=== PATIENT | male | born 1955 | race Caucasian/White ===

== ENCOUNTER 2018-08-29 04:38 | Observation (INO) ==
[2018-08-29] MEDS ORDERED: ONDANSETRON 4 MG/2 ML VIAL IVP ONE ×2 (04:46→05:24)
[2018-08-29] MEDS ORDERED: Sodium Chloride 0.9% 1,000 ML PRIMARY IV ONE ×3 (04:46→05:37)
[2018-08-29] MEDS ORDERED: MORPHINE SULFATE 4 MG/1 ML IVP ONE ×2 (04:46→05:24)
[2018-08-29] MEDS ORDERED: FAMOTIDINE 20 MG/2 ML VIAL IVP ONE ×4 (04:46→09:58)
[2018-08-29] MEDS ORDERED: Belladon/PHENobarbital Elixir 10 ML, Lidocaine Viscous Liquid 2% 15 ML, Mag Hyd/Al Hyd/... PO ONE ×6 (04:52→05:24)
[2018-08-29] MEDS ORDERED: MORPHINE SULFATE 4 MG/1 ML ONE (05:37)
[2018-08-29] MEDS ORDERED: ONDANSETRON 4 MG/2 ML VIAL ONE (05:37)
[2018-08-29 05:42] LABS: BASOPHILS # (AUTO) 0.03 10*3/UL; BASOPHILS % (AUTO) 0.3 % (0-1); EOSINOPHILS # (AUTO) 0.01 10*3/UL; EOSINOPHILS % (AUTO) 0.1 % (0-8); Hematocrit [HCT] 45.7 % (42.0-52.0); Hemoglobin [HGB] 15.2 g/dL (14.0-18.0); LYMPHOCYTES # (AUTO) 1.48 10*3/uL; MEAN CORPUSCULAR HGB CONC 33.3 g/dL (33-37); MEAN PLATELET VOLUME 9.4 FL (7.4-12.2); MONOCYTES # (AUTO) 0.59 10*3/UL (0.3-0.8); NEUTROPHILS # (AUTO) 9.76 10*3/UL; PLATELET MORPHOLOGY COMMENT NORMAL MORPHOLOGY (NORM); RBC MORPHOLOGY COMMENT NORMAL MORPHOLOGY (NORM); RED BLOOD COUNT 5.64 10^6/uL (4.70-6.10); WBC MORPHOLOGY COMMENT NORMAL MORPHOLOGY (NORM)
--- NOTE | 2018-08-29 05:46 | PDOC ---
Abdomen/Flank HPI - General Chief Complaint: Abdomen Pain Stated Complaint: Stomach on fire Date Seen by Provider: 08/29/18 Time Seen by Provider: 04:45 Source: POSITIVE: Patient Exam Limitations: POSITIVE: No limitations Nurse's Notes Reviewed & Considered: Yes - History of Present Illness Initial Comments: The patient is a 63-year-old male who presents to the emergency department with epigastric abdominal pain. He states that approximately a week ago he had onset of some epigastric pain associated with itching. He had taken some antiacid medication and milk and the symptoms seem to resolve. This evening after eating some chili he had onset of recurrent pain which he describes as a burning pain in the epigastric region. He states that he made himself vomit several times without any relief. He tried taking antiacid medications without any relief. The pain is centered primarily in the epigastric region. He states he does have some shortness of breath. He denies lightheadedness or fever. He has not had any hematemesis or blood in his stool. He has not had any prior abdominal surgeries. He denies any known history of stomach ulcers or acid reflux. He currently rates his pain a 10 out of 10. He states that he has not slept all night secondary to the pain. His only past medical history is hypertension. He denies cardiac history. - Patient Home Medications Home Medications: Home Medications Atenolol 25 mg PO DAILY 08/29/18 - Patient Allergies Allergies/Adverse Reactions: Allergies Allergy/AdvReac Type Severity Reaction Status Date / Time No Known Allergies Allergy Verified 08/29/18 04:41 Past Medical History - heen HEENT History: Denies History Cardiovascular History: Hypertension Respiratory History: Denies History Gastrointestinal History: Denies History Genitourinary History: Denies History Endocrine History: Denies History Musculoskeletal History: Denies History Neurological History: Denies History Blood Disorders: Denies History Psychiatric History: Denies History History of Sexually Transmitted Diseases: No Male Reproductive History: Denies History Cancer History: Denies History In Past Year Been Physically Harmed or Verbally Threatened: No History of MDRO: No History of Other Communicable Diseases: No Tobacco Use: Never Smoker In the Past 12 Months, Have Used or Abuse Any Substance: None Previous Surgical History: No Significant Family History: No pertinent family hx Past Medical History Reviewed: Reviewed - No Changes ROS - Limitations ROS Limitations: No Limitations Constitution: DENIES: Chills, Fever Cardiovascular: DENIES: Chest Pain, Heart Palpitations, Edema Respiratory: REPORTS: Shortness Of Breath. DENIES: Cough Non Productive, Cough Productive Neurological: REPORTS: Denies Neuro Symptoms Gastrointestinal: REPORTS: Abdominal Pain, Nausea, Vomitting Endocrine: REPORTS: Denies Symptoms Musculoskeletal: REPORTS: Denies MS Symptoms Genitourinary: REPORTS: Denies Symptoms Eyes: REPORTS: Denies Symptoms ENT: REPORTS: Denies Symptoms Abdominal/Flank Pain PE - General Appearance General Appearance: POSITIVE: Alert, Cooperative, No Acute Distress - HEENT HEENT: POSITIVE: Head Inspection Nml, Eyes Inspection Nml, Ears Inspection Nml, Nose Inspection Nml, Pharynx Inspect. Nml - Neck Neck: POSITIVE: Normal Inspection. NEGATIVE: Lymphadenopathy - Respiratory Respiratory: POSITIVE: No Respiratory Distress, Breath Sounds Normal - Cardiovascular Cardiovascular: POSITIVE: Regular Rate and Rhythm, Heart Sounds Normal Peripheral Pulses: Dorsalis-pedis (R): 2+, Dorsalis-pedis (L): 2+ - Abdomen Abdomen: Soft: (All Quadrants), Normal Bowel Sounds: (All Quadrants), Denies Tenderness: (All Quadrants), No Guarding: (All Quadrants), No Rebound: (All Quadrants) - Back Back: NEGATIVE: CVA Tenderness (R), CVA Tenderness (L) - Skin Skin: POSITIVE: Intact, No Rash - Extremities Extremity: Normal ROM: (All Extremities), Normal Inspection: (All Extremities) - Neurological Neurological: POSITIVE: Oriented X3, iron pourer Normal As Tested, Motor Normal, Sensation Normal Abdomen Progress - Results Reviewed by me Xrays/CTs/US Reviewed by me: Yes Discussed with Radiologist: Yes Radiology Findings: CT scan of the abdomen and pelvis with IV contrast shows no acute intra-abdominal findings per radiologist. Lab Results Reviewed by Me: Yes CBC and BMP: 08/29/18 05:18 08/29/18 05:18 EKG Interpreted/Reviewed By Me:: Yes EKG Interpretation:: POSITIVE: Normal Sinus Rhythm, Normal Rate, Normal QRS, Normal ST/T - Patient's Progress MDM / ED Course: On arrival the patient is complaining of 10 out of 10 epigastric abdominal pain. His initial EKG shows normal sinus rhythm with no acute ST segment or T-wave changes. An IV was established and the patient received 4 mg of morphine, 4 mg of Zofran and 20 mg of Pepcid IV. He also received a GI cocktail. Labs and CT of the abdomen and pelvis were ordered. The patient stated initially that he did not think he needed a CT scan because it was "just heartburn". After administration of initial medications the patient stated that the pain was still there however he "just doesn't care". His initial blood work revealed a mildly elevated white blood cell count and one elevated transaminase, the remainder of his blood work was unremarkable. These findings were discussed with the patient. He was still having significant pain and decision was made to obtain the CAT scan of the abdomen and pelvis with IV contrast. This did not show any acute intra-abdominal findings per radiologist. The patient was still having considerable pain and received fentanyl 50 g IV which she states did not help at all. He reported that his pain was still a 10 out of 10. I subsequent really discussed the patient with Dr. Chow. The patient will be admitted for further treatment and evaluation. A gallbladder ultrasound was ordered and the patient received Dilaudid 1 mg IV and Protonix 40 mg IV. I also discussed the patient with Dr. Leonard and he has agreed to admit the patient for further treatment. These findings recommendations were discussed with the patient and his and he is in agreement with current plan. - Consult Counseled: POSITIVE: Patient, Family, RE: Lab Results, RE: Radiology Results, RE: DX Patient Care Time - Estimated PCT Patient Care Time (In Minutes): 45 Vital Signs - Recent Vital Signs Vital Signs: Vital Signs (Last 8 hours) Temp Pulse Resp BP Pulse Ox 08/29/18 04:41 97.4 F 82 18 191/107 95 - VS Reviewed Vital Signs Reviewed: Yes Discharge Clinical Impression: Abdominal pain, Gastritis Discharge Disposition: Admit to Observation Condition: Stable Follow Up With: NONE,NONE [Primary Care Provider] -
[2018-08-29 05:48] LABS: BLOOD UREA NITROGEN 15 mg/dL (7-22); BUN/CREATININE RATIO 13.63 (6-20); LIPASE 83 IU/L (23-300); SERUM ALBUMIN 4.5 g/dL (3.5-4.8)
[2018-08-29] MEDS ORDERED: LIDOCAINE 2% VISCOUS(20 MG/1 ML) - 15 ML UD CUP PO ONE (05:48)
[2018-08-29] MEDS ORDERED: MAG HYDROX/AL HYDROX/SIMETH 30 ML SUSP PO ONE (05:48)
[2018-08-29] MEDS ORDERED: BELLADONNA ALKALOIDS/PHENOBARB 32.4 MG/10 ML PO ONE (05:48)
[2018-08-29] MEDS ORDERED: fentaNYL Inj 100 MCG/2 ML VIAL IVP ONE (06:53)
[2018-08-29] MEDS ORDERED: fentaNYL Inj 100 MCG/2 ML VIAL ONE (07:04)
--- NOTE | 2018-08-29 07:25 | DI ---
EXAM: CT Abdomen and Pelvis With Intravenous Contrast CLINICAL HISTORY: ITS.REASON Abdominal Pain Physician Notes: Tech Comments: TECHNIQUE: Axial computed tomography images of the abdomen and pelvis with intravenous contrast. COMPARISON: No relevant prior studies available. FINDINGS: Lung bases: There is bibasilar linear atelectasis versus fibrosis. ABDOMEN: Liver: Unremarkable. No mass. Gallbladder and bile ducts: Unremarkable. No calcified stones. No ductal dilation. Pancreas: Unremarkable. No mass. No ductal dilation. Spleen: Unremarkable. No splenomegaly. Adrenals: Unremarkable. No mass. Kidneys and ureters: Unremarkable. No solid mass. No hydronephrosis. Stomach and bowel: Unremarkable. No obstruction. No mucosal thickening. PELVIS: Appendix: Normal appendix. Bladder: Unremarkable. No mass. Reproductive: Unremarkable as visualized. ABDOMEN and PELVIS: Intraperitoneal space: Unremarkable. No free air. No significant fluid collection. Bones/joints: No acute fracture. No dislocation. Soft tissues: Small fat-containing left inguinal hernia. Vasculature: Unremarkable. No abdominal aortic aneurysm. Lymph nodes: Unremarkable. No enlarged lymph nodes. IMPRESSION: No acute findings.
[2018-08-29] MEDS ORDERED: HYDROmorphone 2 MG/1 ML IVP ONE (07:54)
[2018-08-29] MEDS ORDERED: PANTOPRAZOLE IV 40 MG VIAL IVP ONE (07:54)
--- NOTE | 2018-08-29 08:25 | DI ---
GALLBLADDER AND LIVER ULTRASOUND, 08/29/2018 7:56 AM: Clinical History: Epigastric pain Previous Exam: None at this facility. Comparison is made with the CT scan of the abdomen and pelvis p erformed earlier this morning. Technique: Right upper quadrant scanned in multiple projections with Color Doppler ultrasound. Liver Texture: Diffuse fatty infiltration. No liver mass. Liver Size: Hepatomegaly. 199 mm. Gallbladder: Well distended. Multiple gallstones are present and these are associated with acoustical shadowing. They measure approximately 5 mm in diameter. Normal gallbladder wall thickness. Negative Oseguera's sign. Common Bile Duct: 5 mm. Pancreas: Completely obscured by gas. Right Kidney: Normal right kidney. IVC and Aorta: Normal IVC and aorta. READIN. Cholelithiasis without evidence of cholecystitis. Common duct measures 5 mm. No definite Oseguera's sign noted. 2. Hepatomegaly with diffuse fatty infiltration.
[2018-08-29] MEDS ORDERED: ACETAMINOPHEN 325 MG TABLET PO PRN (09:21)
[2018-08-29] MEDS ORDERED: ONDANSETRON 4 MG/2 ML VIAL IVP PRN (09:21)
[2018-08-29] MEDS ORDERED: LIDOCAINE W/ SODIUM BICARB 0.5 ML SYR SUBD PRN ×2 (09:21→12:05)
[2018-08-29] MEDS ORDERED: CALCIUM CARBONATE 500 MG (TUMS) CHEWABLE TABLET PO PRN (09:21)
[2018-08-29] MEDS ORDERED: Levofloxacin (Premix) 750 MG/150 ML PIGGYBACK IV SCH (09:30)
[2018-08-29] MEDS ORDERED: Lactated Ringers 1,000 ML PRIMARY IV SCH (09:30)
[2018-08-29] MEDS ORDERED: metroNIDAZOLE 500mg (Premix) 500 MG/100 ML BAG IV SCH (09:30)
--- NOTE | 2018-08-29 09:31 | EKG ---
[address] [address] Measurements Intervals [place] Rate: 70 P: 33 OK: 172 QRS: -1 QRSD: 86 T: 11 QT: 375 QTc: 396 Interpretive Statements SINUS RHYTHM No previous ECG available for comparison Electronically Signed On 08-29-18 15:18:58 MST by Gopi Melendez [email or web address]
--- NOTE | 2018-08-29 09:32 | PDOC ---
HPI - History of Present Illness Date of Service: 08/29/18 Time of Service: 09:45 Chief Complaint: Abdominal pain that started last night History of Present Illness: This is a 63 years old male with medical history significant for history of hy pertension who presented to the hospital with history of epigastric pain he said this is his third attack, a month ago he doesn't remember exactly the details he did have abdominal pain and then it resolved on its own and then a few days ago he had abdominal pain in the epigastric area took some antiacid and then it resolved. last night he started again to have epigastric pain that radiated to the back he vomited with dry heaving no nausea though. Because of all the symptoms he came into the ER, his pain was 10 out of 10 when he came in he had multiple pain medication including morphine, Dilaudid, fentanyl, Pepcid and Protonix and continued to have the pain. He Had a CT of the abdomen which was negative an ultrasound of the abdomen showed cholelithiasis and he was admitted. Currently he said his pain is maybe 6 out of 10. He did report diarrhea this been going on for about 4 months, liquid has some hemorrhoids and sometimes he has some blood. Past Medical History Medical History: 1. Hypertension Family History: Reviewed an Not Pertinent Past Social History: Does not smoke occasionally drink no drugs. Tobacco Use: Never Smoker In the Past 12 Months, Have Used or Abuse Any of the Following Substance: None Medication / Allergies Home Medications: Home Medications Medication Instructions Recorded Confirmed Type Atenolol 25 mg PO BID 08/29/18 08/29/18 History HYDROcodone/APAP 7.5/325 Tab 1 - 2 tab PO Q4H PRN #20 tab 08/29/18 Rx [[place] 7.5/325 Tab] Allergies/Adverse Reactions: Allergies Allergy/AdvReac Type Severity Reaction Status Date / Time No Known Allergies Allergy Verified 08/29/18 04:41 Review of Systems - Review of Systems All Systems: Reviewed & No Additional Complaints Except as Stated Exam - Vitals Vital Signs: Vital Signs Temperature 98.3 F Temperature Source Temporal Artery Scan Pulse Rate [Pulse Oximeter] 83 Pulse Rate 80 Respiratory Rate 19 Blood Pressure [Left Arm] 173/98 Blood Pressure 170/96 Pulse Ox 92 Oxygen Delivery Method Room Air Height 6 ft 2 in Weight 226 lb - General General Appearance: No Acute Distress, Cooperative - Head Head Exam: Normal Inspection - Eye Eye Exam: POSITIVE: Normal Appearance - ENT ENT Exam: POSITIVE: Normal Exam - Neck Neck Exam: Normal Inspection - Respiratory Respiratory Exam: POSITIVE: Clear to Auscultation - Bilaterally - Cardiovascular Cardiovascular Exam: POSITIVE: RRR - GI/Abdominal GI/Abdominal Exam: POSITIVE: Normal Bowel Sounds, Non Distended, Soft, No Organomegaly Additional GI/Abdominal Exam Details: Some tenderness in the right upper abdomen present not severe. - Rectal Rectal Exam: POSITIVE: Deferred - External Exam: POSITIVE: Deferred Exam: POSITIVE: Deferred - Extremities Extremities Exam: POSITIVE: Normal Inspection - Back Back Exam: POSITIVE: Normal Inspection - Neurological Neurological Exam: POSITIVE: Alert, Oriented x 3, CN II-XII Intact, No Facial Droop, Speech Intact / Clear, Moves All Extremities Equally - Psychiatric Psychiatric Exam: POSITIVE: Normal Affect - Integumentary Integumentary Exam: POSITIVE: Normal Color Results - Labs CBC and BMP: 08/29/18 05:18 08/29/18 05:18 - Imaging Status: Report Reviewed by Me (Ultrasound of the abdomen showed cholelithiasis) Assessment and Plan - Patient Problems (1) Abdominal pain Current Visit: Yes Status: Acute Comment: Ultrasound did show cholelithiasis. I did consult Dr. Marian Clark who saw him and will take him to surgery today. He did suggest IV antibiotics. Code(s): R10.9 - Unspecified abdominal pain (2) Hypertension Current Visit: Yes Status: Acute Comment: Continue with the atenolol Code(s): I10 - Essential (primary) hypertension
[2018-08-29] MEDS ORDERED: HYDROmorphone 2 MG/1 ML IVP PRN ×2 (09:34→12:05)
[2018-08-29] MEDS ORDERED: ATENOLOL 25 MG TABLET PO ONE (09:45)
[2018-08-29] MEDS ORDERED: Sodium Chloride 0.9% vial 20 ML ONE ×2 (09:57)
[2018-08-29] MEDS ORDERED: KETOROLAC 30 MG/1 ML VIAL ONE (09:57)
[2018-08-29] MEDS ORDERED: MIDAZOLAM 5 MG/1 ML ONE (09:57)
[2018-08-29] MEDS ORDERED: PROPOFOL 10 MG/1 ML (200 MG/20 ML) VIAL IV ONE (09:57)
[2018-08-29] MEDS ORDERED: Acetaminophen 1000mg Inj 1,000 MG/100 ML VIAL IV ONE (09:58)
[2018-08-29] MEDS ORDERED: fentaNYL Inj 250 MCG/5 ML VIAL ONE (09:58)
[2018-08-29] MEDS ORDERED: LIDOCAINE MPF 2% - 5 ML (20 MG/1 ML) ONE (09:58)
[2018-08-29] MEDS ORDERED: ROCURONIUM 10 MG/1 ML - 5 ML VIAL IVP ONE (09:58)
[2018-08-29] MEDS ORDERED: REMIFENTANIL 1 MG/1 ML IV ONE (10:06)
--- NOTE | 2018-08-29 10:16 | CONSULT ---
Consult Note - Consult Consult Date: 08/29/18 Reason for Consult: PreOp Consulation : General Surgery Primary Care Provider: NONE NONE - History of Present Illness History of Present Illness: 63-year-old gentleman who developed acute epigastric right upper quadrant abdominal pain on August 28. He states this occurred while he was eating and watching the football game. He states that is a pain sharp in nature does not radiate anywhere. He came emergency department had a workup done by Dr. Ezequiel Castillo who had a slight elevation in his white count 11.8. Patient subsequently had a CT scan which is unremarkable. Patient was tucked in for pain control. Ultrasound shows that he has cholelithiasis. Common bile duct m easures 5 mm. No evidence acute cholecystitis on CT scan. Patient denies any acholic stools. He denies fevers or chills. He states he's had one similar attack but is a lot less intense that he is having now. Review of Systems - Constitutional Constitutional: REPORTS: Negative System Review - Eye Exam Eye Exam: REPORTS: Negative System Review - Respiratory Respiratory: REPORTS: Negative System Review - Cardiovascular Cardiovascular: REPORTS: Negative System Review, Other (History of hypertension) - Gastrointestinal Gastrointestinal / Abdominal: REPORTS: Negative System Review - Musculoskeletal Musculoskeletal: REPORTS: Negative System Review - Neurological Neurologic: REPORTS: Negative System Review - Psychiatric Psychiatric: REPORTS: Negative System Review Past Medical History Medical History: 1. Hypertension Family History: Reviewed an Not Pertinent Past Social History: Does not smoke occasionally drink no drugs. Tobacco Use: Never Smoker In the Past 12 Months, Have Used or Abuse Any of the Following Substance: None Medication / Allergies Home Medications: Home Medications Medication Instructions Recorded Confirmed Type Atenolol 25 mg PO BID 08/29/18 08/29/18 History Allergies/Adverse Reactions: Allergies Allergy/AdvReac Type Severity Reaction Status Date / Time No Known Allergies Allergy Verified 08/29/18 04:41 Results - Labs CBC and BMP: 08/29/18 05:18 08/29/18 05:18 Exam - Vitals Vital Signs: Vital Signs Temperature 98.3 F Temperature Source Temporal Artery Scan Pulse Rate [Pulse Oximeter] 83 Pulse Rate 80 Respiratory Rate 19 Blood Pressure [Left Arm] 173/98 Blood Pressure 170/96 Pulse Ox 92 Oxygen Delivery Method Room Air Height 6 ft 2 in Weight 226 lb - General General Appearance: No Acute Distress - GI/Abdominal GI/Abdominal Exam: POSITIVE: Normal Bowel Sounds, Non Distended, No Masses, Positive for RUQ Pain, No Hepatomegaly, No Splenomegaly Assessment and Plan - Patient Problems (1) Cholelithiasis NOS Current Visit: Yes Status: Acute Code(s): K80.20 - Calculus of gallbladder without cholecystitis without obstruction - Assessment / Plan Additional Assessment/Plan Details: I would recommend the patient having a laparoscopic cholecystectomy. I have discussed the pathophysiology about gallstones and gallbladder disease. I have discussed the risk of surgery and the potential complications that could occur with the surgery. I also discussed alternative treatment options. I have gone over the surgical technique with the patient. The patient understands this information. I also discussed the difference between single site using the da Ruth surgery and also the traditional laparoscopic surgery. The patient be scheduled at the first available date. Questions that the patient had were answered. CPT 64453
[2018-08-29] MEDS ORDERED: BUPIVACAINE 0.25% W/ EPI - 10 ML VIAL ONE (10:23)
[2018-08-29] MEDS ORDERED: Sodium Chloride 0.9% vial 50 ML ONE (10:23)
[2018-08-29] MEDS ORDERED: Iothalamate Meglumine 30 ML VIAL IV ONE (10:23)
[2018-08-29] MEDS ORDERED: CefOXitin Inj 2 GM in Sodium Chloride 0.9% 100 ML IV ONE (10:44)
[2018-08-29] MEDS ORDERED: Sodium Chloride 0.9% 100 ML IV ONE (10:46)
[2018-08-29] MEDS ORDERED: HYDRALAZINE 20 MG/1 ML ONE (10:51)
[2018-08-29] MEDS ORDERED: Lactated Ringers 1,000 ML PRIMARY IV ONE (11:42)
[2018-08-29] MEDS ORDERED: SUGAMMADEX SODIUM 200 MG/2 ML VIAL IV ONE (11:44)
--- NOTE | 2018-08-29 11:53 | GEN.OPNOTE ---
Operative Note Surgery Date: 08/29/18 Preoperative Diagnosis: Cholelithiasis without obstruction Postoperative Diagnosis: Cholelithiasis without obstruction but acute cholecystitis Procedure: Laparoscopic cholecystectomy with operative cholangiogram Surgeon: Subhash Chow MD Plant Culture Manager: Carlin Archer MD Anesthesia Provider: Patricia Arias CRNA Anesthesia Type: General Estimated Blood Loss (mL): 2 Fluids: Lactated Ringer's please see anesthesia notes in EMR. Patient received 2 g of Mefoxin Pathology: Gallbladder sent Indications: Patient is right upper quadrant abdominal pain that is unresponsive to pain management. He has a mild leukocytosis Findings: Acutely inflamed gallbladder Complications: None Operative Summary: Patient was brought in the operating room. Placed in supine position. Given general anesthetic. Was prepped draped sterile fashion. Timeout performed per protocols. Quarter percent Marcaine was infiltrated at all trocar sites. Small incision made below the umbilicus. Veress needle inserted pneumoperitoneum obtained. After adequate pneumoperitoneum a 10 mm trocar was placed using the Visiport. Under direct laparoscopic visualization a 10 mm trocar subxiphoid and 2 -5 mm in the midclavicular and midaxillary line. Appropriate instrument were placed. Gallbladder grasped at the fundus retracted over the liver edge. Gallbladder was grasped at Jacobo's pouch. The cystic duct was dissected free. I put a clip on the cystic duct up near the gallbladder. Opened up the cystic duct and place intraoperative cholangiogram catheter and it. Because of position with the C-arm is difficult to see the duct [place] a look that the common bile duct easily dump dye into the small bowel. At this point we loss the catheters are again a bad leak. Therefore terminated the cholangiogram. I did not see the right and left hepatic duct. I removed the cholangiogram catheter. I doubly clipped the cystic duct below the opening in the cystic du ct. I then divided the cystic duct. I dissected the cystic artery out and was identified what was believed to be common bile duct. the cystic artery was dissected free 3 hemoclips placed and divided. The gallbladder was dissected off liver's edge using electrocautery. The gallbladder was then removed through a subumbilical incision. The abdominal cavity was irrigated until clear. The trochars were removed. The umbilicus incision was closed with 0 PDS suture to the fascia. The skin was reapproximated using 4-0 Vicryl simple sutures. The remainder trocar sites were 5 mm defects we will close. The remainder skin incisions closed with 4-0 Vicryl. Steri-Strips applied sterile dressings applied. Patient transferred to recovery room in stable condition. Counts were correct Patient Problems - Patient Problem List (1) Cholelithiasis NOS Current Visit: Yes Status: Acute Code(s): K80.20 - Calculus of gallbladder without cholecystitis without obstruction Category: Medical Procedure Codes - Surgical Procedures Primary Surgical Procedure: 17095 : Cholecsytectomy w/Cholangiograph
--- NOTE | 2018-08-29 11:57 | PDOC(PROG) ---
Date of Service: 08/29/18 Time of Service: 11:56 Interval History: Patient is well-developed the surgery and is having no problems Objective : Data - Labs CBC and BMP: 08/29/18 05:18 08/29/18 05:18 - Vital Signs Vital Signs and I&O: Vital Signs - Last Taken Temperature 98.3 F 08/29/18 09:00 Pulse Rate 75 08/29/18 10:40 Respiratory Rate 17 08/29/18 10:40 Blood Pressure 157/101 08/29/18 10:40 Pulse Ox 93 08/29/18 10:40 Intake and Output (24hr x 4 totals) 08/27/18 08/28/18 08/29/18 08/30/18 05:59 05:59 05:59 05:59 Intake Total 400 / 400 Balance 400 / 400 Objective : Exam - General General Appearance: No Acute Distress, Cooperative - GI/Abdominal GI/Abdominal Exam: Non Tender, Non Distended Assessment and Plan - Patient Problems (1) Cholelithiasis NOS Current Visit: Yes Status: Acute Code(s): K80.20 - Calculus of gallbladder without cholecystitis without obstruction - Assessment / Plan Additional Assessment/Plan Details: At this point think the patient can be discharged home. Follow-up in one week's time
[2018-08-29] MEDS ORDERED: HYDROcodone-APAP 7.5 MG-325 MG TABLET PO PRN (12:00)
[2018-08-29] MEDS ORDERED: Metoclopramide Inj 10 MG/2 ML VIAL IVP PRN (12:05)
--- NOTE | 2018-08-29 12:08 | CRNA.PROGR ---
Anesthesia Time - Procedure/Recovery Time Start Date: 08/29/18 Anesthesia : Time In: 10:49 Anesthesia : Time Out: 12:05 - Other Weight: 102.512 kg Height: 6 ft 2 in Body Mass Index (BMI): 29.0 Physical Status: P2 Anesthesia Type: General Anesthesia : ET
[2018-08-29 12:40] VITALS: RESP 18; TEMP 97.4; O2SAT 90
[2018-08-29 12:56] VITALS: BP 149/84
--- NOTE | 2018-08-29 13:19 | DI ---
OPERATIVE CHOLANGIOGRAM, 08/29/2018 10:45 AM : Clinical History: Cholelithiasis. Views: 2 with contrast present on both films, but only in the duodenum. Reflux: Reflux into the duodenum. Stones: The biliary system is not visualized. Bile Ducts: The biliary system is not visualized. Reading: Nondiagnostic operative cholangiogram. The patient was not charged for this study.
[2018-08-29] MEDS ORDERED: ATENOLOL 25 MG TABLET PO SCH (21:00)
--- NOTE | 2018-08-30 02:39 | DCSUMMARY ---
Hospitalization Summary Admit Date: 08/29/2018 Discharge Date: 08/29/18 Hospital Course: Discharge diagnosis 1. Abdominal pain secondary to acute cholecystitis, needed a laparoscopic cholecystectomy 2. History of hypertension Hospital course This is a 63 years old male with medical history significant for history of hypertension who presented to the hospital with history of epigastric pain he said this is his third attack, a month ago he doesn't remember exactly the details he did have abdominal pain and then it resolved on its own and then a few days ago he had abdominal pain in the epigastric area took some antiacid and then it resolved. last night he started again to have epigastric pain that radiated to the back he vomited with dry heaving no nausea though. Because of all the symptoms he came into the ER, his pain was 10 out of 10 when he came in he had multiple pain medication including morphine, Dilaudid, fentanyl, Pepcid and Protonix and continued to have the pain. He Had a CT of the abdomen which was negative an ultrasound of the abdomen showed cholelithiasis and he was admitted. When I saw him he rated his pain to be 6 out of 10. He did report diarrhea this been going on for about 4 months, liquid has some hemorrhoids and sometimes he has some blood. We did consult surgery Dr. Chow took him to surgery had laparoscopic cholecystectomy. Dr. Chow discharge patient's post surgery. The patient will follow-up with him as an outpatient. Discharge instruction Diet regular Activity as tolerated Medication Home Medications Atenolol 25 mg PO BID 08/29/18 [History Confirmed 08/29/18] HYDROcodone/APAP 7.5/325 Tab [[place] 7.5/325 Tab] 1 - 2 tab PO Q4H PRN #20 tab 08/29/18 [Rx] Follow-up Dr. Dr. Chow as scheduled Exam - Vitals Vital Signs: Vital Signs Temperature 97.4 F Temperature Source Temporal Artery Scan Pulse Rate [Pulse Oximeter] 79 Pulse Rate 76 Respiratory Rate 18 Blood Pressure [Left Arm] 146/74 Blood Pressure 149/84 Pulse Ox 90 Oxygen Flow Rate 2L Oxygen Delivery Method Room Air Height 6 ft 2 in Weight 226 lb Patient Problems - Patient Problem List (1) Abdominal pain Status: Acute Code(s): R10.9 - Unspecified abdominal pain Category: Medical (2) Hypertension Status: Acute Code(s): I10 - Essential (primary) hypertension Category: Medical
== END 2018-08-29 16:36 | disposition home or self-care (01) ==
LOC: ER 04:38 → INTOOBSV 08:39 → MED/SURG 08:39 → OPS 10:29 → MED/SURG 12:37
PROVIDERS: ADMIT Internal Medicine; ATTEND Internal Medicine